=== PATIENT | male | born 1980 | race Caucasian/White ===

== ENCOUNTER 2018-12-12 10:58 | Emergency (ER) | payer MEDICAID ==
[2018-12-12] MEDS ORDERED: LIDOCAINE VISCOUS 2% 15 ML UDC MM STA (11:41)
[2018-12-12] MEDS ORDERED: MAG HYDROX/AL HYDROX/SIMETH 30 ML UDC PO STA (11:42)
[2018-12-12] MEDS ORDERED: SODIUM CHLORIDE 0.9% 1,000 ML IV ONE (11:42)
--- NOTE | 2018-12-12 11:45 | ED Physician Documentation ---
PD HPI ABD PAIN - Stated complaint Stated Complaint: ABD PX - Chief complaint Chief Complaint: Abd Pain - History obtained from History obtained from: Patient, Family - History of Present Illness Timing - onset: How many days ago (3) Timing - duration: Days (3) Timing - details: Gradual onset, Still present Quality: Sharp, Pain Location: Epigastric Radiation: Lower back Improved by: Other (nothing) Worsened by: Breathing, Position, Palpation Associated symptoms: Nausea, Diarrhea, Loss of appetite. No: Vomiting Similar symptoms before: Has not had sx before Recently seen: Not recently seen - Additional information Additional information: Previously well 38-year-old male has developed epigastric pain about 3 days ago he is had persistence and worsening of this pain and he is now coming to the emergency department unable to sleep last night. He denies any use of ibuprofen or Aleve prior to last night. He did do some Aleve last night without relief. He denies the use of alcohol. He has not had prior history of ulcer. He has had his appendix out. Review of Systems Constitutional: denies: Fever Eyes: denies: Decreased vision Ears: denies: Ear pain Nose: denies: Congestion Throat: denies: Sore throat Cardiac: denies: Chest pain / pressure, Palpitations Respiratory: denies: Dyspnea, Cough GI: reports: Abdominal Pain, Nausea, Diarrhea. denies: Vomiting : denies: Dysuria, Frequency PD PAST MEDICAL HISTORY - Past Medical History Past Medical History: Yes Cardiovascular: None Respiratory: Asthma Endocrine/Autoimmune: None GI: Other : None HEENT: None Psych: None Musculoskeletal: None Derm: None Other Past Medical History: inguinal hernia - Past Surgical History Past Surgical History: Yes General: Appendectomy, Other - Present Medications Home Medications: Ambulatory Orders Medication Instructions Recorded Confirmed Albuterol Sulf [Ventolin Hfa 1 - 2 puffs INH Q4HR PRN 01/08/16 01/12/16 Inhaler] Sucralfate [Carafate] 1 gm PO ACHS #60 tablet 12/12/18 - Allergies Allergies/Adverse Reactions: Allergies Allergy/AdvReac Type Severity Reaction Status Date / Time Penicillins Allergy Severe Edema Verified 12/12/18 11:09 - Social History Does the pt smoke?: Yes Smoking Status: Current every day smoker Does the pt drink ETOH?: No Does the pt have substance abuse?: No - Immunizations Immunizations are current?: Yes Immunizations: TDAP >10years/unknown - POLST Patient has POLST: No PD ED PE NORMAL - Vitals Vital signs reviewed: Yes (hypertensive ) - General General: Alert and oriented X 3, Well developed/nourished, Other (38 y/o male w) - HEENT HEENT: Atraumatic, PERRL, EOMI - Neck Neck: Supple, no meningeal sign, No bony TTP - Cardiac Cardiac: No murmur, Other (tachy ot 100) - Respiratory Respiratory: No respiratory distress - Abdomen Abdomen: Soft, Other (epigastric tenderness is without garding. ) - Back Back: No CVA TTP, No spinal TTP - Derm Derm: Normal color, Warm and dry, No rash - Extremities Extremities: No deformity, No edema - Neuro Neuro: Alert and oriented X 3, protective clothing issuer 2-12 intact, No motor deficit, No sensory deficit, Normal speech Eye Opening: Spontaneous Motor: Obeys Commands Verbal: Oriented GCS Score: 15 - Psych Psych: Normal mood, Normal affect Results - Vitals Vitals: Vital Signs - 24 hr 12/12/18 12/12/18 11:09 13:20 Temperature 36.5 C 36.5 C Heart Rate 96 94 Respiratory 17 16 Rate Blood Pressure 117/82 H 117/62 O2 Saturation 99 98 Oxygen O2 Source Room air - Labs Labs: Laboratory Tests 12/12/18 12/12/18 11:52 11:52 WBC 7.8 RBC 5.32 Hgb 16.5 Hct 48.7 MCV 91.5 MCH 31.0 MCHC 33.9 RDW 12.6 Plt Count 127 L MPV 10.9 Neut # (Auto) 6.0 Lymph # (Auto) 0.7 L Sherman # (Auto) 1.0 Eos # (Auto) 0.0 Baso # (Auto) 0.0 Absolute Nucleated RBC 0.00 Nucleated RBC % 0.0 Sodium 136 Potassium 3.5 Chloride 97 L Carbon Dioxide 32 Anion Gap 7.0 BUN 15 Creatinine 0.9 Estimated GFR (MDRD) 95 Glucose 116 H Calcium 8.8 Total Bilirubin 0.6 AST 16 ALT 14 Alkaline Phosphatase 70 Total Protein 7.3 Albumin 3.7 Globulin 3.6 Albumin/Globulin Ratio 1.0 Lipase 23 Ethyl Alcohol < 5.0 Procedures - Bedside sono Bedside sono by EMP: With use of bedside ultrasound the gallbladder is imaged and it is sonographically nontender there is no evidence of stone, the wall is not thickened and there is no pericholecystic fluid. - IVC sono (time) 1135 Bedside IVC sono: IVC measures (cm) (1.00), IVC collapsed c insp (cm) (complete), Dehydration (est 1-2 liter deficit) PD MEDICAL DECISION MAKING - ED course Complexity details: reviewed results, re-evaluated patient, considered differential, d/w patient ED course: 38-year-old male with 3 days of epigastric pain has relief with use of viscous lidocaine and Mylanta and he is administered Protonix intravenously as well as Carafate orally. He was dehydrated on arrival to the emergency department and has received 1 L of saline intravenously. We will place him on a course of Carafate and encouraged him to use an [id number] acid recovery specialist. Departure - Departure Disposition: 01 Home, Self Care Clinical Impression: Gastritis Qualifiers: Gastritis type: unspecified gastritis Chronicity: acute Gastritis bleeding: without bleeding Qualified Code(s): K29.00 - Acute gastritis without bleeding Instructions: ED PUD Vs Gastritis Follow-Up: [facility] [Provider Group] Prescriptions: Sucralfate [Carafate] 1 gm PO ACHS #60 tablet Comments: Today it appears your stomach has been irritated and you will need to take a medication to reduce the acid in your stomach for about 2 weeks. Take nexium, tagamet or pepcid available over the counter on a regular basis and take the carafate to coat the stomach and esophagus to aid in healing. Forms: Activity restrictions Discharge Date/Time: 12/12/18 13:23
[2018-12-12] MEDS ORDERED: ONDANSETRON 4 MG/2 ML VIAL IVP STA (11:53)
[2018-12-12 12:03] LABS: BASOPHILS % (AUTO) 0.4 %; EOSINOPHILS % (AUTO) 0.4 %; HGB - HEMOGLOBIN 16.5 g/dL (14.0-18.0); LYMPHOCYTES # (AUTO) 0.7 10^3/uL (1.5-3.5); LYMPHOCYTES % (AUTO) 8.9 %; MEAN CORPUSCULAR HGB CONC 33.9 g/dL (32.0-36.0); MEAN CORPUSCULAR VOLUME 91.5 fL (80.0-94.0); MEAN PLATELET VOLUME 10.9 fL (7.4-11.4); MONOCYTES % (AUTO) 12.4 %; NEUTROPHILS % (AUTO) 77.4 %; PLT - PLATELET COUNT 127 10^3/uL (130-450); RED BLOOD COUNT 5.32 10^6/uL (4.70-6.10); RED CELL DISTRIBUTION WIDTH 12.6 % (12.0-15.0); WHITE BLOOD COUNT 7.8 x10^3/uL (4.8-10.8)
[2018-12-12 12:15] LABS: ALBUMIN 3.7 g/dL (3.2-5.5); ALKALINE PHOSPHATASE 70 IU/L (42-121); ALT ALANINE AMINOTRANSFERASE 14 IU/L (10-60); AST ASPARTATE AMINOTRANSFERASE 16 IU/L (10-42); BILIRUBIN,TOTAL 0.6 mg/dL (0.2-1.0); BUN - BLOOD UREA NITROGEN 15 mg/dL (6-20); CALCIUM 8.8 mg/dL (8.5-10.3); CARBON DIOXIDE - CO2 32 mmol/L (21-32); CHLORIDE 97 mmol/L (101-111); CREATININE 0.9 mg/dL (0.6-1.2); GFR - MDRD 95 (>89); GLUCOSE 116 mg/dL (70-100); LIPASE 23 U/L (22-51); SODIUM 136 mmol/L (135-145); TOTAL PROTEIN 7.3 g/dL (6.7-8.2)
[2018-12-12] MEDS ORDERED: PANTOPRAZOLE 40 MG VIAL IVP STA (13:00)
[2018-12-12] MEDS ORDERED: SUCRALFATE 1 GM/10 ML UDC PO STA (13:02)
[2018-12-12 13:21] VITALS: BP 117/62
== END 2018-12-12 13:23 | disposition home or self-care (01) ==
LOC: ED 10:58
DX: K29.00 Acute gastritis without bleeding (principal); E86.0 Dehydration; Z90.49 Acquired absence of other specified parts of digestive tract; F17.200 Nicotine dependence, unspecified, uncomplicated
CPT/HCPCS: 36415; 80053; 80320; 83690; 85025; 96361; 96374; 96375; 99284; A9270

== ENCOUNTER 2020-03-17 15:15 | Emergency (ER) | payer MEDICAID ==
[2020-03-17] MEDS ORDERED: ALBUTEROL 1 PUFF INH STA (15:32)
[2020-03-17] MEDS ORDERED: predniSONE 20 MG TABLET PO STA (15:32)
--- NOTE | 2020-03-17 15:49 | ED Physician Documentation ---
History of Present Illness - Stated complaint Stated Complaint: ASTHMA ISSUES - Chief complaint Chief Complaint: Resp - History obtained from History obtained from: Patient - History of Present Illness Timing: Today Pain level max: 0 Pain level now: 0 - Additonal information Additional information: States increased wheezing today. Usually has albuterol for asthma, but ran out. No fevers. No chills. No cough. No congestion. Nothing makes it better or worse. Review of Systems Constitutional: denies: Fever, Chills Nose: denies: Rhinorrhea / runny nose, Congestion Respiratory: denies: Cough GI: denies: Abdominal Pain, Vomiting, Diarrhea Skin: denies: Rash Musculoskeletal: denies: Neck pain, Back pain Neurologic: denies: Headache PD PAST MEDICAL HISTORY - Past Medical History Past Medical History: Yes Cardiovascular: None Respiratory: Asthma Neuro: None Endocrine/Autoimmune: None GI: Other : None HEENT: None Psych: None Musculoskeletal: None Derm: None - Past Surgical History Past Surgical History: Yes General: Appendectomy, Other - Present Medications Home Medications: Ambulatory Orders Medication Instructions Recorded Confirmed Albuterol Sulf [Ventolin Hfa 1 - 2 puffs INH Q4HR PRN 01/08/16 03/17/20 Inhaler] Albuterol Sulf [Ventolin Hfa 1 - 2 puffs INH Q4HR PRN #1 inhaler 03/17/20 Inhaler] predniSONE [Deltasone] 10 mg PO [id number] #42 tab 03/17/20 - Allergies Allergies/Adverse Reactions: Allergies Allergy/AdvReac Type Severity Reaction Status Date / Time Penicillins Allergy Severe Edema Verified 03/17/20 15:22 - Social History Does the pt smoke?: No Smoking Status: Former smoker Does the pt drink ETOH?: No Does the pt have substance abuse?: No - Immunizations Immunizations are current?: Yes Immunizations: TDAP >10years/unknown - POLST Patient has POLST: No PD ED PE NORMAL - Vitals Vital signs reviewed: Yes - General General: Alert and oriented X 3, No acute distress - HEENT HEENT: Moist mucous membranes - Neck Neck: Supple, no meningeal sign - Cardiac Cardiac: RRR - Respiratory Respiratory: Other (mild increased work of breathing. Audible wheezing) - Abdomen Abdomen: Soft, Non tender, Non distended - Derm Derm: Warm and dry - Extremities Extremities: No edema, No calf tenderness / cord - Neuro Neuro: Alert and oriented X 3 Results - Vitals Vitals: Vital Signs - 24 hr 03/17/20 03/17/20 03/17/20 15:19 15:34 16:01 Temperature 37.0 C 36.5 C Heart Rate 115 H 104 H 117 H Respiratory 20 28 H 22 Rate Blood Pressure 148/77 H 131/90 H O2 Saturation 99 99 Oxygen O2 Source Room air PD MEDICAL DECISION MAKING - ED course Complexity details: re-evaluated patient, considered differential, d/w patient ED course: Patient appears to have an asthma exacerbation. He is well-appearing, nontoxic. Afebrile. No hypoxia. Feels better after albuterol treatment and steroids. Will prescribe this for home. I will have him follow-up with his doctor for further care. Patient counseled regarding signs and symptoms for which I believe and urgent re-evaluation would be necessary. Patient with good understanding of and agreement to plan and is comfortable going home at this time This document was made in part using voice recognition software. While efforts are made to proofread this document, sound alike and grammatical errors may occur. Departure - Departure Disposition: Home, Self Care Clinical Impression: Asthma exacerbation Qualifiers: Asthma severity: unspecified severity Asthma persistence: unspecified Qualified Code(s): J45.901 - Unspecified asthma with (acute) exacerbation Condition: Good Instructions: ED Reactive Airway Disease Follow-Up: your,doctor in 1-2 weeks [Other] Prescriptions: Albuterol Sulf [Ventolin Hfa Inhaler] 1 - 2 puffs INH Q4HR PRN #1 inhaler PRN Reason: Shortness Of Air/Wheezing predniSONE [Deltasone] 10 mg PO [id number] #42 tab Comments: Use the medication as prescribed. Return if you worsen. Follow-up with your doctor for further care.
[2020-03-17 16:12] VITALS: BP 125/91
== END 2020-03-17 16:15 | disposition home or self-care (01) ==
LOC: ED 15:15
DX: J45.901 Unspecified asthma with (acute) exacerbation (principal); Z87.891 Personal history of nicotine dependence
CPT/HCPCS: 94640; 94664; 99283; 99284; J7512

== ENCOUNTER 2020-08-03 08:33 | Outpatient (CLI) | payer MEDICAID | END 2020-08-03 08:34 | disposition critical access hospital (66) | LOC: EMS 08:33 | DX: R53.83 Other fatigue (principal); R20.0 Anesthesia of skin; R20.2 Paresthesia of skin; R47.81 Slurred speech | CPT/HCPCS: A0425; A0427; A0999 ==

== ENCOUNTER 2020-08-03 09:05 | Emergency (ER) | payer MEDICAID ==
--- NOTE | 2020-08-03 09:35 | ED Physician Documentation ---
PD HPI ALTERED MENTAL STATUS - Stated complaint Stated Complaint: LETHARGIC/SLURRED SPEECH - Chief complaint Chief Complaint: Neuro - History obtained from History obtained from: Patient, Friend, EMS - History of Present Illness Timing - onset: Today, Last night Timing - details: Gradual onset (patient states he took extra Seroquel because his left arm was hurting. No noted injury definite but "may have landed on it falling". No skin sores, redness, swelling. He was acting sleepy/ hard to rouse, so friend brought him to Urgent Care. Referred to ER for further testing/eval.) Quality / character: Less responsive Associated symptoms: No: Fever, Headache, Dyspnea, Cough, NVD Contributing factors: Other (he took extra seroquel this morning to help his arm pain, not with self-harm intent.) Basline status: Alert and oriented X 3, Ambulatory Similar symptoms before: Has not had sx before Review of Systems Unable to obtain: AMS (somnolent, but rouses to tactile/verbal, will answer simple questions.) Constitutional: denies: Fever Musculoskeletal: denies: Neck pain, Back pain Neurologic: reports: Numbness (some in left forearm). denies: Focal weakness, Headache, Head injury PD PAST MEDICAL HISTORY - Past Medical History Cardiovascular: None Respiratory: Asthma Neuro: Seizure disorder Endocrine/Autoimmune: None GI: Other : None HEENT: None Psych: None Musculoskeletal: None Derm: None - Past Surgical History Past Surgical History: Yes General: Appendectomy, Other - Present Medications Home Medications: Ambulatory Orders Medication Instructions Recorded Confirmed Albuterol Sulf [Ventolin Hfa 1 - 2 puffs INH Q4HR PRN #1 inhaler 03/17/20 08/03/20 Inhaler] Meloxicam [Mobic] 7.5 mg PO BID PRN #20 tablet 08/03/20 Quetiapine Fumarate [Seroquel] 300 mg PO HS 08/03/20 08/03/20 - Allergies Allergies/Adverse Reactions: Allergies Allergy/AdvReac Type Severity Reaction Status Date / Time Penicillins Allergy Severe Edema Verified 03/17/20 15:22 amoxicillin Allergy Emesis Verified 08/03/20 09:14 - Social History Does the pt smoke?: No Smoking Status: Former smoker Does the pt drink ETOH?: Yes Does the pt have substance abuse?: No - Immunizations Immunizations are current?: Yes Immunizations: TDAP >10years/unknown - POLST Patient has POLST: No PD ED PE NORMAL - Vitals Vital signs reviewed: Yes - General General: Alert and oriented X 3, No acute distress (he is somnolent but rouses easily. Does not seem uncomfortable. ), Well developed/nourished - HEENT HEENT: Atraumatic, PERRL (constricted but symmetric and reactive. ), EOMI, Pharynx benign - Neck Neck: Supple, no meningeal sign, No bony TTP, No adenopathy - Cardiac Cardiac: RRR, No murmur - Respiratory Respiratory: Clear bilaterally, Other (no chestwall tenderness. ) - Abdomen Abdomen: Soft, Non tender - Derm Derm: Normal color, Warm and dry - Extremities Extremities: Other (left mid forearm to proximal wrist area with tenderness without deformity. No skin redness, sores nor swelling. Good pulses at wrist. Good cap refill in fingers.) - Neuro Neuro: Alert and oriented X 3, No motor deficit, No sensory deficit, Normal speech Eye Opening: To Voice Motor: Obeys Commands Verbal: Confused GCS Score: 13 Results - Vitals Vitals: Vital Signs - 24 hr 08/03/20 08/03/20 08/03/20 09:16 09:22 10:33 Temperature 36.4 C L Heart Rate 93 77 69 Respiratory 16 14 16 Rate Blood Pressure 122/80 125/84 H 109/70 O2 Saturation 100 100 99 08/03/20 08/03/20 08/03/20 12:02 14:15 15:19 Temperature 36.4 C L Heart Rate 60 65 62 Respiratory 16 15 15 Rate Blood Pressure 109/68 112/61 111/51 L O2 Saturation 100 100 100 08/03/20 08/03/20 16:22 17:20 Temperature Heart Rate 58 L 68 Respiratory 16 18 Rate Blood Pressure 101/56 L 105/59 L O2 Saturation 100 100 Oxygen O2 Source Room air - Labs Labs: Laboratory Tests 08/03/20 08/03/20 08/03/20 10:00 10:00 10:00 WBC 5.4 RBC 4.13 L Hgb 12.9 L Hct 38.9 L MCV 94.2 H MCH 31.2 H MCHC 33.2 RDW 13.0 Plt Count 160 MPV 10.8 Neut # (Auto) 3.1 Lymph # (Auto) 1.5 [place] # (Auto) 0.7 Eos # (Auto) 0.1 Baso # (Auto) 0.0 Absolute Nucleated RBC 0.00 Nucleated RBC % 0.0 Sodium 139 Potassium 3.6 Chloride 102 Carbon Dioxide 30 Anion Gap 7.0 BUN 12 Creatinine 0.9 Estimated GFR (MDRD) 94 Glucose 104 H Calcium 9.0 Total Bilirubin 0.7 AST 18 ALT 13 Alkaline Phosphatase 48 Total Protein 6.4 L Albumin 3.7 Globulin 2.7 Albumin/Globulin Ratio 1.4 Lipase 20 L TSH 0.17 L Salicylates < 6.0 Acetaminophen < 10 L Ethyl Alcohol < 5.0 PD MEDICAL DECISION MAKING - ED course Complexity details: re-evaluated patient (did not have sats nor HR abnormal in ER. Basically slept from sedative effect of meds. He was here hours. Subsequently more easily rousable and able to stand/walk in balance. We called his friend to give him ride home. He declined SW resources re: substance abuse. he said his arm was not sore now. ), considered differential (apparent somnolence from extra med doses and if he took nonRx drugs too. Vitals and sats good. At this point, think we would just watch vitals/resps as he metabolizes. ), d/w patient Departure - Departure Disposition: 01 Home, Self Care Clinical Impression: Left arm pain Altered mental status Qualifiers: Altered mental status type: somnolence Qualified Code(s): R40.0 - Somnolence Accidental medication overdose Qualifiers: Encounter type: initial encounter Qualified Code(s): T50.901A - Poisoning by unspecified drugs, medicaments and biological substances, accidental (unintentional), initial encounter Condition: Stable Record reviewed to determine appropriate education?: Yes Instructions: ED Strain Muscle Ext Prescriptions: Meloxicam [Mobic] 7.5 mg PO BID PRN #20 tablet PRN Reason: Pain Comments: Please take only your usual doses of medications. Stay well-hydrated. Do not take extra doses. The x-ray of your forearm does not show any bony abnormalities. Presume its a strain of the muscles or such. Activity as tolerated with the arm. Add meloxicam anti-inflammatory twice daily for pain and inflammation. Recheck if not improved over the next several days or so. Discharge Date/Time: 08/03/20 17:26
--- NOTE | 2020-08-03 10:02 | XRAY Report ---
PROCEDURE: Forearm LT INDICATIONS: pain forearm since last night; unknown if injury TECHNIQUE: 2 views of the forearm were acquired. COMPARISON: None. FINDINGS: Bones: No acute fractures or dislocations. No suspicious bony lesions. Soft tissues: No suspicious soft tissue calcifications or masses. IMPRESSION: Left radius/ulna without acute fracture or dislocation. If there is persistent clinical concern for a radiographically occult fracture, recommend immobilizat ion and repeat imaging in 10 to 14 days. Reviewed by: Julio Alfaro MD on 08/03/2020 10:01 AM PDT Approved by: Julio Alfaro MD on 08/03/2020 10:01 AM PDT Station ID: [id number]
[2020-08-03 10:16] LABS: BASOPHILS % (AUTO) 0.7 %; EOSINOPHILS # (AUTO) 0.1 10^3/uL (0.0-0.7); HCT - HEMATOCRIT 38.9 % (42.0-52.0); HGB - HEMOGLOBIN 12.9 g/dL (14.0-18.0); LYMPHOCYTES # (AUTO) 1.5 10^3/uL (1.5-3.5); LYMPHOCYTES % (AUTO) 28.1 %; MEAN CORPUSCULAR HEMOGLOBIN 31.2 pg (27.0-31.0); MEAN CORPUSCULAR HGB CONC 33.2 g/dL (32.0-36.0); MEAN CORPUSCULAR VOLUME 94.2 fL (80.0-94.0); MEAN PLATELET VOLUME 10.8 fL (7.4-11.4); MONOCYTES # (AUTO) 0.7 10^3/uL (0.0-1.0); MONOCYTES % (AUTO) 12.4 %; NEUTROPHILS # (AUTO) 3.1 10^3/uL (1.5-6.6); NEUTROPHILS % (AUTO) 56.6 %; PLT - PLATELET COUNT 160 10^3/uL (130-450); RED BLOOD COUNT 4.13 10^6/uL (4.70-6.10); WHITE BLOOD COUNT 5.4 x10^3/uL (4.8-10.8)
[2020-08-03 10:32] LABS: ACETAMINOPHEN < 10 ug/mL (10-30); ALBUMIN 3.7 g/dL (3.2-5.5); ALBUMIN/GLOBULIN RATIO 1.4 (1.0-2.2); ALKALINE PHOSPHATASE 48 IU/L (42-121); ALT ALANINE AMINOTRANSFERASE 13 IU/L (10-60); AST ASPARTATE AMINOTRANSFERASE 18 IU/L (10-42); BILIRUBIN,TOTAL 0.7 mg/dL (0.2-1.0); BUN - BLOOD UREA NITROGEN 12 mg/dL (6-20); CARBON DIOXIDE - CO2 30 mmol/L (21-32); CHLORIDE 102 mmol/L (101-111); CREATININE 0.9 mg/dL (0.6-1.2); ETOH - ETHANOL < 5.0 mg/dL; GFR - MDRD 94 (>89); GLUCOSE 104 mg/dL (70-100); LIPASE 20 U/L (22-51); POTASSIUM 3.6 mmol/L (3.5-5.0); SALICYLATE < 6.0 mg/dL; SODIUM 139 mmol/L (135-145); TOTAL PROTEIN 6.4 g/dL (6.7-8.2)
[2020-08-03 17:21] VITALS: BP 105/59
== END 2020-08-03 17:26 | disposition home or self-care (01) ==
LOC: EDUNIT# → ED 09:05
DX: R40.0 Somnolence (principal); T43.591A Poisoning by other antipsychotics and neuroleptics, accidental (unintentional), initial encounter; Z87.891 Personal history of nicotine dependence
CPT/HCPCS: 36415; 80053; 80307; 80320; 80329; 83690; 84443; 85025; 99284

== ENCOUNTER 2021-03-14 14:34 | Outpatient (CLI) | payer MEDICAID ==
[2021-03-14 20:03] LABS: HCT - HEMATOCRIT 44.9 % (42.0-52.0); HGB - HEMOGLOBIN 14.8 g/dL (14.0-18.0); MEAN CORPUSCULAR VOLUME 90.9 fL (80.0-94.0); MEAN PLATELET VOLUME 10.8 fL (7.4-11.4); RED BLOOD COUNT 4.94 10^6/uL (4.70-6.10); RED CELL DISTRIBUTION WIDTH 12.2 % (12.0-15.0); WHITE BLOOD COUNT 7.4 x10^3/uL (4.8-10.8)
[2021-03-14 20:24] LABS: RHEUMATOID FACTOR NEGATIVE (Negative)
[2021-03-14 20:46] LABS: CRP - C-REACTIVE PROTEIN < 1.0 mg/dL (0-1.0)
[2021-03-17 13:17] LABS: ANA SCREEN NEGATIVE (NEGATIVE)
[2021-03-17 15:36] LABS: DNA (DS) ANTIBODY 1 IU/mL
[2021-03-18 12:41] LABS: CYCLIC CITRULL PEPTIDE CCP IGG <16 UNITS
== END 2021-03-14 14:35 | disposition home or self-care (01) ==
LOC: LAB.S 14:34
PROVIDERS: ATTEND Internal Medicine
DX: M25.50 Pain in unspecified joint (principal)
CPT/HCPCS: 36415; 81599; 84182; 84550; 85027; 85651; 86038; 86140; 86200; 86225; 86235; 86430

== ENCOUNTER 2021-10-08 23:06 | Outpatient (CLI) | payer MEDICAID | END 2021-10-08 23:07 | disposition critical access hospital (66) | LOC: EMS 23:06 | DX: R42 Dizziness and giddiness (principal); F11.10 Opioid abuse, uncomplicated | CPT/HCPCS: A0425; A0429; A0999 ==